=== PATIENT | male | born 1965 | race Asian ===

== ENCOUNTER 2016-08-12 18:18 | Emergency (ER) | payer OTHER ==
[2016-08-12 18:24] VITALS: BP 134/99; PULSE 60; RESP 16; TEMP 98.6; O2SAT 98
--- NOTE | 2016-08-12 19:29 | EDPHY ---
H & P Stated Complaint: Sore throat, URI sxs x 4-5 days Time Seen by Provider: 08/12/16 19:18 HPI/ROS: CHIEF COMPLAINT: Sore throat HISTORY OF PRESENT ILLNESS: 51-year-old immunocompetent male complaining of 5 days of URI symptoms which have by and large resolved however he continues to complain of pharyngitis, feels subjective foreign body sensation which is intermittent in his left posterior oropharynx. Denies dysphagia. Positive odynophagia. No fever or chills. No change in voice. No trismus or drooling. No nuchal rigidity. No abdominal pain. REVIEW OF SYSTEMS: A ten point review of systems was performed and is negative with the exception of the items mentioned in the HPI PAST MEDICAL & SURGICAL HISTORY: Remote history of Left neck mass removal SOCIAL HISTORY: nonsmoker PHYSICAL EXAM (Prior to examination, patient consented to physical exam, hands were washed and my usual and customary physical exam procedures followed) 1) GENERAL: Well-developed, well-nourished, alert and oriented. Appears to be in no acute distress. Appears nontoxic. Smiling. 2) HEAD: Normocephalic, atraumatic 3) HEENT: Pupils equal, round, reactive to light bilaterally. Sclera anicteric. Nasopharynx, oropharynx, clear, no lesions. Posterior oropharynx is erythematous with white exudate. No trismus no drooling. Uvula is midline. No hot potato voice. Ears bilaterally with normal tympanic membranes. 4) NECK: Full range of motion, no meningeal signs. No adenopathy. No tenderness. No asymmetry. No crepitus. 5) LUNGS: Clear auscultation bilaterally, no wheezes, no rhonchi, no retractions. 6) HEART: Regular rate and rhythm, no murmur, no heave, no gallop. 7) ABDOMEN: No guarding, no rebound, no focal tenderness, 8) MUSCULOSKELETAL: Moving all extremities. 9) BACK: No CVA tenderness. 10) SKIN: No rash, no petechiae. DIFFERENTIAL DIAGNOSIS: In no particular order including but not limited to meningitis, mononucleosis, foreign body, - Personal History Current Tetanus Diphtheria and Acellular Pertussis (TDAP): Yes - Medical/Surgical History Other PMH: neg - Social History Smoking Status: Never smoked Constitutional: Initial Vital Signs Temperature (C) 37 C 08/12/16 18:19 Heart Rate 60 08/12/16 18:19 Respiratory Rate 16 08/12/16 18:19 Blood Pressure 134/99 H 08/12/16 18:19 O2 Sat (%) 98 08/12/16 18:19 O2 Delivery Mode Room Air Allergies/Adverse Reactions: No Known Allergies Allergy (Unverified 08/12/16 18:24) Home Medications: Medication Instructions Recorded Amoxicillin/Clavulanate Pot 875 mg PO BID #14 tab 08/12/16 [Augmentin 875 mg tab] methylPREDNISolone [Medrol Dose 4 mg PO DAILY #1 ea 08/12/16 Juan J] Medical Decision Making - Diagnostics Imaging: Xray of the soft tissue neck interpreted by myself and Dr Sibley: no definitive acute abnormality , multiple surgical clips left neck ED Course/Re-evaluation: On exam of this patient he is breathing comfortably, has a patent airway with no trismus or drooling, no signs of abscess. He requested soft tissue neck x- ray which was performed showing no definitive acute osseous abnormality, no radiopaque foreign body. Doubt peritonsillar or retropharyngeal abscess. Doubt paraspinous abscess. Doubt meningitis. Doubt mononucleosis. Doubt necrotizing fasciitis. Given his presenting symptoms think a course of antibiotics is appropriate some concerned about possible strep etiology. Plan will be starting the patient on Augmentin and Medrol Dosepak. Specifically inquired about adverse reaction to steroids and/or mental health history and he denies this. Usual customary pharyngitis precautions instructions provided. Discussed case with Dr Sibley in ER. Departure - Departure Disposition: Home, Routine, Self-Care Clinical Impression: Acute pharyngitis Qualifiers: Pharyngitis/tonsillitis etiology: unspecified etiology Qualified Code(s): J02.9 - Acute pharyngitis, unspecified Condition: Good Instructions: Pharyngitis (ED) Additional Instructions: Return to the ER immediately if you cannot swallow, have drooling, fevers, neck stiffness, cannot open your jaw, or any other symptoms that concern you. Referrals: Melissa Ordonez MD [Medical Doctor] - 08/15/16 (Dr. Melissa Ordonez is an ear nose and throat doctor) Prescriptions: Amoxicillin/Clavulanate Pot [Augmentin 875 mg tab] 875 mg PO BID #14 tab methylPREDNISolone [Medrol Dose Juan J] 4 mg PO DAILY #1 ea
== END 2016-08-12 20:10 | disposition home or self-care (01) ==
DX: J02.9 Acute pharyngitis, unspecified (principal)